=== PATIENT | female | born 1970 | race American Indian/Alaskan Native ===

== ENCOUNTER 2017-03-07 10:15 | Day surgery (SDC) | payer MEDICAID ==
[2017-03-07] MEDS ORDERED: NACL 0.9% 1000 ML 1,000 ML IV SCH (11:00)
[2017-03-07] MEDS ORDERED: XYLOCAINE MPF 2% ONE (11:00)
[2017-03-07] MEDS ORDERED: DIPRIVAN 10 MG/ML IV ONE ×2 (11:20)
[2017-03-07] MEDS ORDERED: WATER FOR IRRIG STERILE IR ONE (11:26)
--- NOTE | 2017-03-07 11:31 | Anesthesia Day of Surgery ---
Anesthesia Day of Surgery - Day of Surgery Patient Examined: Yes Patient H&P Reviewed: Yes Patient is NPO: Yes
--- NOTE | 2017-03-07 11:31 | Anesthesia Consultation ---
Anesthesia Consult and Med Hx Date of service: 03/07/17 - Airway Anesthetic Teeth Evaluation: Good ROM Head & Neck: Adequate Mental/Hyoid Distance: Adequate Mallampati Class: Class II Intubation Access Assessment: Probably Good - Pulmonary Exam CTA: Yes - Cardiac Exam Cardiac Exam: RRR - Pre-Operative Health Status ASA Pre-Surgery Classification: ASA2 Proposed Anesthetic Plan: MAC - Pulmonary Hx Smoking: Yes (black and mild 3-5/day) Hx Sleep Apnea: No - Cardiovascular System Hx Hypertension: Yes (MVP) Hx Angina: Yes (chest pain at rest) - Central Nervous System Hx Neuromuscular Disorder: No Hx Psychiatric Problems: No - Gastrointestinal Hx Gastroesophageal Reflux Disease: No - Endocrine Hx Renal Disease: No Hx Insulin Dependent Diabetes: No - Hematic Hx Anemia: No Hx Sickle Cell Disease: No - Other Systems Hx Alcohol Use: No Hx Substance Use: No Hx Cancer: No Hx Obesity: No
--- NOTE | 2017-03-07 12:00 | Post Anesthesia Evaluation ---
- Post Anesthesia Evaluation Patient Participated: Yes Airway Patent: Yes Stable Respiratory Function: Yes Temp > 96.8F: Yes Pain Manageable: Yes Adequeate Hydration: Yes Anesthesia Complications: No Block Receding Appropriately: Not Applicable
--- NOTE | 2017-03-07 12:07 | Short Stay Summary ---
Short Stay Documentation Date of service: 03/07/17 - History H&P: obtained from office - Allergies and Medications Current Medications: Allergies No Known Allergies Allergy (Verified 03/07/17 10:28) Home Medications Medication Instructions Recorded Confirmed Last Taken Type Carvedilol 1 tab PO BID 03/07/17 03/07/17 03/07/17 History [place] 36,000 Units Capsule 1 tab PO DAILY 03/07/17 03/07/17 03/06/17 History Cyclobenzaprine 1 tab PO DAILY 03/07/17 03/07/17 03/06/17 History Gabapentin 300 mg PO DAILY 03/07/17 03/07/17 03/06/17 History Ibuprofen 2 tab PO PRN PRN 03/07/17 03/07/17 Unknown History Lisinopril/Hydrochlorothiazide 1 tab PO DAILY 03/07/17 03/07/17 03/07/17 History Ondansetron 1 tab PO DAILY 03/07/17 03/07/17 03/06/17 History Pantoprazole 1 tab PO DAILY 03/07/17 03/07/17 03/06/17 History Prochlorperazine 25 mg PO BID 03/07/17 03/07/17 03/06/17 History Ranitidine HCl 150 mg PO DAILY 03/07/17 03/07/17 03/06/17 History Simvastatin 40 mg PO HS 03/07/17 03/07/17 03/06/17 History amLODIPine 1 tab PO DAILY 03/07/17 03/07/17 03/07/17 History hydrALAZINE 1 tab PO DAILY 03/07/17 03/07/17 03/07/17 History Active Medications Sodium Chloride (Nacl 0.9% 1000 Ml) 1,000 mls @ 50 mls/hr IV DIRECT HUONG Last Admin: 03/07/17 10:59 Dose: 50 mls/hr - Brief post op/procedure progress note Date of procedure: 03/07/17 Findings: see dictation Estimated blood loss: none Pathology: none Condition: stable - Disposition Condition at discharge: Good - Discharge Diagnoses (1) Constipation Status: Acute Qualifiers: Constipation type: C Short Stay Discharge Plan Activity: other (no driving for 24 hours) Weight Bearing Status: Full Weight Bearing Diet: regular Follow up with: LAURA KEATING MD [Primary Care Provider] - 7 Days
--- NOTE | 2017-03-07 12:08 | Operative Report ---
Operative Report Operative Report: Date of procedure: 03/07/2017 Preprocedure diagnosis: Severe constipation. Post procedure diagnosis: Normal study. Procedure: Colonoscopy to the cecum Endoscopist: Dr. Guevara Anesthesia: Monitored anesthesia care per anesthesia department Estimated blood loss: 0 Medications: Monitored anesthesia care. See separate report by anesthesia for details. After careful discussion of the nature and purpose of the procedure as well as details of the technique risks benefits and alternatives the patient gave consent. Please see recent history and physical from the office. The patient was placed in the left lateral decubitus position and medicated per anesthesia. A rectal exam was performed sphincter tone was normal there were no masses palpable. The groSolarn 570 scope was passed transanally and advanced under continuous direct vision without difficulty to the cecum. The colon was well prepared. The cecum was normal. The ascending colon was normal and on forward and retroflexed views. The transverse colon, descending colon, and sigmoid colon were normal. The rectum was normal on forward and retroflexed views. The procedure was well-tolerated overall and the patient was observed in recovery. Conclusions: Normal colonoscopy to the cecum. Plan: Repeat colonoscopy in 10 years. Continued outpatient management of constipation. Signed electronically: Christiano Guevara M.D.
[2017-03-07 12:58] VITALS: BP 117/89
== END 2017-03-07 10:16 | disposition home or self-care (01) ==
LOC: GIO 10:15
PROVIDERS: ATTEND Internal Medicine Gastroenterology
DX: K59.00 Constipation, unspecified (principal); I10 Essential (primary) hypertension; F41.8 Other specified anxiety disorders; K21.9 Gastro-esophageal reflux disease without esophagitis; E78.5 Hyperlipidemia, unspecified; G43.909 Migraine, unspecified, not intractable, without status migrainosus; F17.290 Nicotine dependence, other tobacco product, uncomplicated; Z87.19 Personal history of other diseases of the digestive system; Z79.899 Other long term (current) drug therapy
CPT/HCPCS: 45378; J2704; J7030

== ENCOUNTER 2017-10-23 18:05 | Emergency (ER) | payer MEDICAID ==
[2017-10-23 18:16] VITALS: BP 157/93
== END 2017-10-23 19:30 | disposition left against medical advice (07) ==
LOC: ED 18:05
DX: R07.89 Other chest pain (principal); Z53.21 Procedure and treatment not carried out due to patient leaving prior to being seen by health care provider
CPT/HCPCS: 93005; 93010

== ENCOUNTER 2017-11-24 22:38 | Emergency (ER) | payer MEDICAID ==
[2017-11-25 00:22] LABS: Basophils # (Auto) 0.1 K/mm3 (0.0-0.1); Basophils % (Auto) 0.6 % (0.0-1.8); Eosinophils # (Auto) 0.2 K/mm3 (0.0-0.4); Eosinophils % (Auto) 1.7 % (0.0-4.3); Hematocrit 34.5 % (30.3-42.9); Hemoglobin 11.5 gm/dl (10.1-14.3); Lymphocytes # (Auto) 2.9 K/mm3 (1.2-5.4); Lymphocytes % (Auto) 30.1 % (13.4-35.0); Mean Corpuscular HGB Conc 33 % (30-34); Mean Corpuscular Hemoglobin 30 pg (28-32); Mean Corpuscular Volume 90 fl (79-97); Monocytes # (Auto) 1.1 K/mm3 (0.0-0.8); Monocytes % (Auto) 10.9 % (0.0-7.3); Platelet Count 232 K/mm3 (140-440); Red Blood Count 3.82 M/mm3 (3.65-5.03); Red Cell Distribution Width 13.7 % (13.2-15.2)
[2017-11-25 00:40] LABS: Alanine Aminotransferase 15 units/L (7-56); Albumin 4.6 g/dL (3.9-5); BUN/Creatinine Ratio 18; Blood Urea Nitrogen 11 mg/dL (7-17); Hemolysis Index 5
[2017-11-25 00:40] LABS: Amorphous Crystals,Urine 2+; Bilirubin,Urine NEG (Negative); Blood,Urine NEG (Negative); Color,Urine Yellow (Yellow); Hyaline Casts,Urine 7 /LPF; Mucus,Urine FEW /HPF; Protein,Urine <15 mg/dL mg/dL (Negative); Urobilinogen,Urine < 2.0 mg/dL (<2.0)
[2017-11-25 00:54] VITALS: BP 130/86
[2017-11-25] MEDS ORDERED: NORCO 5/325 PO ONE (01:31)
--- NOTE | 2017-11-25 01:37 | Emergency Department Report ---
HPI - General Chief Complaint: Extremity Injury, Lower Time Seen by Provider: 11/25/17 01:18 - HPI HPI: Room 6 The patient is a 47-year-old female presenting with a chief complaint of bilateral foot swelling. The patient states for the past 2 weeks she's had swelling of both feet and they have been painful. Patient denies any preceding trauma or previous episodes of same. Patient denies any recent flights or long car trips. The patient gives her pain score of 10/10 Location: Bilateral feet Duration: 2 weeks Quality:, Swelling, pain Severity: 10/10 Modifying factors: [see above] Context: [see above] Mode of transportation: [not driving] ED Past Medical Hx - Past Medical History Hx Hypertension: Yes (MVP) - Surgical History Additional Surgical History: Partial Hysterectomy - Family History Family history: no significant - Social History Smoking Status: Former Smoker (none 6 months) Substance Use Type: None (denies illicit drug use), Alcohol (occasional) - Medications Home Medications: Home Medications Medication Instructions Recorded Confirmed Last Taken Type Carvedilol 1 tab PO BID 03/07/17 03/07/17 03/07/17 History [place] 36,000 Units Capsule 1 tab PO DAILY 03/07/17 03/07/17 03/06/17 History Cyclobenzaprine 1 tab PO DAILY 03/07/17 03/07/17 03/06/17 History Gabapentin 300 mg PO DAILY 03/07/17 03/07/17 03/06/17 History Ibuprofen 2 tab PO PRN PRN 03/07/17 03/07/17 Unknown History Lisinopril/Hydrochlorothiazide 1 tab PO DAILY 03/07/17 03/07/17 03/07/17 History Ondansetron 1 tab PO DAILY 03/07/17 03/07/17 03/06/17 History Pantoprazole 1 tab PO DAILY 03/07/17 03/07/17 03/06/17 History Prochlorperazine 25 mg PO BID 03/07/17 03/07/17 03/06/17 History Ranitidine HCl 150 mg PO DAILY 03/07/17 03/07/17 03/06/17 History Simvastatin 40 mg PO HS 03/07/17 03/07/17 03/06/17 History amLODIPine 1 tab PO DAILY 03/07/17 03/07/17 03/07/17 History hydrALAZINE 1 tab PO DAILY 03/07/17 03/07/17 03/07/17 History Furosemide [Lasix] 20 mg PO QDAY #5 tablet 11/25/17 Unknown Rx HYDROcodone/APAP 5-325 [[place] 1 - 2 each PO Q6HR PRN #10 tablet 11/25/17 Unknown Rx 5/325] Ibuprofen [Motrin 800 MG tab] 800 mg PO Q8HR PRN #20 tablet 11/25/17 Unknown Rx ED Review of Systems ROS: Stated complaint: BILATERAL LEG SWELLING,PAIN Other details as noted in HPI Physical Exam - Physical Exam Vital Signs: Vital Signs 11/24/17 11/25/17 23:39 00:51 Temperature 98.4 F 98.7 F Pulse Rate 106 H 106 H Respiratory 18 18 Rate Blood Pressure 130/71 Blood Pressure 130/86 [Left] O2 Sat by Pulse 97 97 Oximetry Physical Exam: GENERAL: The patient is well-developed well-nourished female lying on stretcher not appearing to be in acute distress. [] HEENT: Normocephalic. Atraumatic. Extraocular motions are intact. Patient has moist mucous membranes. NECK: Supple. Trachea midline CHEST/LUNGS: Clear to auscultation. There is no respiratory distress noted. HEART/CARDIOVASCULAR: Regular. There is no tachycardia. There is no gallop rub or murmur. 2+ DPs bilaterally ABDOMEN: Abdomen is soft, nontender. Patient has normal bowel sounds. There is no abdominal distention. SKIN: There is no rash. There is trace bilateral pedal edema. There is no diaphoresis. NEURO: The patient is awake, alert, and oriented. The patient is cooperative. The patient has normal speech MUSCULOSKELETAL: There is no evidence of acute injury. ED Course Vital Signs 11/24/17 11/25/17 23:39 00:51 Temperature 98.4 F 98.7 F Pulse Rate 106 H 106 H Respiratory 18 18 Rate Blood Pressure 130/71 Blood Pressure 130/86 [Left] O2 Sat by Pulse 97 97 Oximetry ED Medical Decision Making - Lab Data Result diagrams: 11/24/17 23:52 11/24/17 23:52 Laboratory Tests 11/24/17 11/24/17 11/24/17 23:50 23:52 23:52 WBC 9.7 RBC 3.82 Hgb 11.5 Hct 34.5 MCV 90 MCH 30 MCHC 33 RDW 13.7 Plt Count 232 Lymph % (Auto) 30.1 [place] % (Auto) 10.9 H Eos % (Auto) 1.7 Baso % (Auto) 0.6 Lymph # 2.9 [place] # 1.1 H Eos # 0.2 Baso # 0.1 Seg Neutrophils % 56.7 Seg Neutrophils # 5.5 Sodium 139 Potassium 4.0 Chloride 101.8 Carbon Dioxide 24 Anion Gap 17 BUN 11 Creatinine 0.6 L Estimated GFR > 60 BUN/Creatinine Ratio 18 Glucose 101 H POC Glucose 96 Calcium 9.0 Total Bilirubin 0.40 AST 13 ALT 15 Alkaline Phosphatase 37 NT-Pro-B Natriuret Pep Total Protein 8.1 Albumin 4.6 Albumin/Globulin Ratio 1.3 Urine Color Urine Turbidity Urine pH Ur Specific [place] Urine Protein Urine Glucose (UA) Urine Ketones Urine Blood Urine Nitrite Urine Bilirubin Urine Urobilinogen Ur Leukocyte Esterase Urine WBC (Auto) Urine RBC (Auto) U Epithel Cells (Auto) Amorphous Crystals Hyaline Casts Urine Mucus 11/24/17 11/25/17 Unknown 01:30 WBC RBC Hgb Hct MCV MCH MCHC RDW Plt Count Lymph % (Auto) [place] % (Auto) Eos % (Auto) Baso % (Auto) Lymph # [place] # Eos # Baso # Seg Neutrophils % Seg Neutrophils # Sodium Potassium Chloride Carbon Dioxide Anion Gap BUN Creatinine Estimated GFR BUN/Creatinine Ratio Glucose POC Glucose Calcium Total Bilirubin AST ALT Alkaline Phosphatase NT-Pro-B Natriuret Pep 10.79 Total Protein Albumin Albumin/Globulin Ratio Urine Color Yellow Urine Turbidity Clear Urine pH 7.0 Ur Specific [place] 1.012 Urine Protein <15 mg/dl Urine Glucose (UA) Neg Urine Ketones Neg Urine Blood Neg Urine Nitrite Neg Urine Bilirubin Neg Urine Urobilinogen < 2.0 Ur Leukocyte Esterase Neg Urine WBC (Auto) 1.0 Urine RBC (Auto) 1.0 U Epithel Cells (Auto) 61.0 H Amorphous Crystals 2+ Hyaline Casts 7 Urine Mucus Few Laboratory Tests 11/24/17 11/24/17 11/24/17 23:50 23:52 23:52 WBC 9.7 RBC 3.82 Hgb 11.5 Hct 34.5 MCV 90 MCH 30 MCHC 33 RDW 13.7 Plt Count 232 Lymph % (Auto) 30.1 [place] % (Auto) 10.9 H Eos % (Auto) 1.7 Baso % (Auto) 0.6 Lymph # 2.9 [place] # 1.1 H Eos # 0.2 Baso # 0.1 Seg Neutrophils % 56.7 Seg Neutrophils # 5.5 Sodium 139 Potassium 4.0 Chloride 101.8 Carbon Dioxide 24 Anion Gap 17 BUN 11 Creatinine 0.6 L Estimated GFR > 60 BUN/Creatinine Ratio 18 Glucose 101 H POC Glucose 96 Calcium 9.0 Total Bilirubin 0.40 AST 13 ALT 15 Alkaline Phosphatase 37 NT-Pro-B Natriuret Pep Total Protein 8.1 Albumin 4.6 Albumin/Globulin Ratio 1.3 Urine Color Urine Turbidity Urine pH Ur Specific [place] Urine Protein Urine Glucose (UA) Urine Ketones Urine Blood Urine Nitrite Urine Bilirubin Urine Urobilinogen Ur Leukocyte Esterase Urine WBC (Auto) Urine RBC (Auto) U Epithel Cells (Auto) Amorphous Crystals Hyaline Casts Urine Mucus 11/24/17 11/25/17 Unknown 01:30 WBC RBC Hgb Hct MCV MCH MCHC RDW Plt Count Lymph % (Auto) [place] % (Auto) Eos % (Auto) Baso % (Auto) Lymph # [place] # Eos # Baso # Seg Neutrophils % Seg Neutrophils # Sodium Potassium Chloride Carbon Dioxide Anion Gap BUN Creatinine Estimated GFR BUN/Creatinine Ratio Glucose POC Glucose Calcium Total Bilirubin AST ALT Alkaline Phosphatase NT-Pro-B Natriuret Pep 10.79 Total Protein Albumin Albumin/Globulin Ratio Urine Color Yellow Urine Turbidity Clear Urine pH 7.0 Ur Specific [place] 1.012 Urine Protein <15 mg/dl Urine Glucose (UA) Neg Urine Ketones Neg Urine Blood Neg Urine Nitrite Neg Urine Bilirubin Neg Urine Urobilinogen < 2.0 Ur Leukocyte Esterase Neg Urine WBC (Auto) 1.0 Urine RBC (Auto) 1.0 U Epithel Cells (Auto) 61.0 H Amorphous Crystals 2+ Hyaline Casts 7 Urine Mucus Few - Differential Diagnosis hypoalbuminemia, renal insufficiency, CHF, peripheral edema Critical care attestation.: If time is entered above; I have spent that time in minutes in the direct care of this critically ill patient, excluding procedure time. ED Disposition Clinical Impression: Peripheral edema, Bilateral foot pain Disposition: TO HOME OR SELFCARE Is pt being admited?: No Does the pt Need Aspirin: No Condition: Stable Instructions: Leg Edema (ED) Additional Instructions: Return to the emergency department immediately should you develop worsening symptoms, fever, inability to tolerate food or liquid or any other concerns. Prescriptions: Furosemide [Lasix] 20 mg PO QDAY #5 tablet HYDROcodone/APAP 5-325 [[place] 5/325] 1 - 2 each PO Q6HR PRN #10 tablet PRN Reason: Pain Ibuprofen [Motrin 800 MG tab] 800 mg PO Q8HR PRN #20 tablet PRN Reason: Pain Referrals: LAURA KEATING MD [Staff Physician] - 2-3 Days Time of Disposition: 02:17
== END 2017-11-25 02:27 | disposition home or self-care (01) ==
LOC: ED 22:38
DX: M79.672 Pain in left foot (principal); M79.671 Pain in right foot; I10 Essential (primary) hypertension; Z87.891 Personal history of nicotine dependence
CPT/HCPCS: 36415; 80053; 81001; 82962; 83880; 85025; 99283

== ENCOUNTER 2018-05-03 16:38 | Emergency (ER) | payer MEDICAID ==
[2018-05-03 16:55] VITALS: BP 143/99
[2018-05-03 17:26] LABS: Basophils # (Auto) 0.1 K/mm3 (0.0-0.1); Basophils % (Auto) 0.9 % (0.0-1.8); Eosinophils # (Auto) 0.2 K/mm3 (0.0-0.4); Eosinophils % (Auto) 1.3 % (0.0-4.3); Hematocrit 39.8 % (30.3-42.9); Hemoglobin 13.2 gm/dl (10.1-14.3); Lymphocytes # (Auto) 3.3 K/mm3 (1.2-5.4); Lymphocytes % (Auto) 26.6 % (13.4-35.0); Mean Corpuscular HGB Conc 33 % (30-34); Mean Corpuscular Hemoglobin 30 pg (28-32); Mean Corpuscular Volume 89 fl (79-97); Monocytes # (Auto) 0.9 K/mm3 (0.0-0.8); Monocytes % (Auto) 7.2 % (0.0-7.3); Platelet Count 207 K/mm3 (140-440); Red Blood Count 4.45 M/mm3 (3.65-5.03); Red Cell Distribution Width 13.2 % (13.2-15.2)
[2018-05-03 17:54] LABS: BUN/Creatinine Ratio 20; Blood Urea Nitrogen 14 mg/dL (7-17); Calcium 9.9 mg/dL (8.4-10.2); Hemolysis Index 9
[2018-05-03 18:58] LABS: Bilirubin,Urine NEG (Negative); Blood,Urine NEG (Negative); Color,Urine Yellow (Yellow); Protein,Urine <15 mg/dL mg/dL (Negative)
== END 2018-05-03 19:22 | disposition left against medical advice (07) ==
LOC: ED 16:38
DX: R73.09 Other abnormal glucose (principal); Z53.21 Procedure and treatment not carried out due to patient leaving prior to being seen by health care provider
CPT/HCPCS: 36415; 80048; 81001; 82805; 82962; 85025

== ENCOUNTER 2018-10-09 17:25 | Emergency (ER) | payer MEDICAID, OTHER ==
--- NOTE | 2018-10-09 17:32 | Emergency Department Report ---
Addendum entered and electronically signed by SARAH MCGEE NP 10/09/18 17:35: Blank Doc - Documentation Documentation: Heart rate elevated and fever with unknown source. Code sepsis. Original Note: Blank Doc - Documentation Documentation: This is a 48-year-old female that presents with hyperglyemia. Stated was at high 300s at home. Stated takes insulin. Patient stated has back pain, increased thirst, bilateral eye pain with some blurry vision, increased urination. This initial assessment diagnostic orders/clinical plan/treatment(s) is/are subject to change based on patient's health status, clinical progression and re- assessment by fellow clinical providers in the ED. Further treatment and workup at subsequent clinical providers discretion. Patient/guardians urged not to elope from ED s their condition may be serious if not clinically assessed and managed. Initial orders include: 1-Patient sent to main ED for further evaluation and treatment. 2- Labs 3- UA
[2018-10-09] MEDS ORDERED: NACL 0.9% 1000 ML IV ONE (17:36)
[2018-10-09 18:22] LABS: Alanine Aminotransferase 18 units/L (7-56); Albumin 4.2 g/dL (3.9-5); BUN/Creatinine Ratio 16; Blood Urea Nitrogen 13 mg/dL (7-17); Calcium 9.4 mg/dL (8.4-10.2); Hemolysis Index 10
--- NOTE | 2018-10-09 18:30 | Emergency Department Report ---
ED General Adult HPI - General Chief complaint: Hyperglycemia Stated complaint: SUGAR/BP/(L) SIDE PAIN Time Seen by Provider: 10/09/18 17:30 Source: patient Mode of arrival: Ambulatory Limitations: No Limitations - History of Present Illness Initial comments: Patient is 48-year-old female with a recent diagnosis of diabetes. Patient is started on metformin twice a day and insulin regular 3 times a day and Lantus at night. Patient presented to the ER stating that she has been having blurry vision for the last 2 weeks, increased thirst and increased urination. Patient also stated that she's been coughing a lot. Patient denied any nausea or vomit ing. No chest pain or shortness of breath or abdominal pain. Patient stated that she only taking metformin now. She stated that last time she took insulin was 3 months ago because she just doesn't want to take the insulin. Patient denied any headache, neck pain, weakness, numbness or angling sensation. Severity scale (0 -10): 10 - Related Data Home Medications Medication Instructions Recorded Confirmed Last Taken Carvedilol 1 tab PO BID 03/07/17 03/07/17 03/07/17 [place] 36,000 Units Capsule 1 tab PO DAILY 03/07/17 03/07/17 03/06/17 Cyclobenzaprine 1 tab PO DAILY 03/07/17 03/07/17 03/06/17 Gabapentin 300 mg PO DAILY 03/07/17 03/07/17 03/06/17 Ibuprofen 2 tab PO PRN PRN 03/07/17 03/07/17 Unknown Lisinopril/Hydrochlorothiazide 1 tab PO DAILY 03/07/17 03/07/17 03/07/17 Ondansetron 1 tab PO DAILY 03/07/17 03/07/17 03/06/17 Pantoprazole 1 tab PO DAILY 03/07/17 03/07/17 03/06/17 Prochlorperazine 25 mg PO BID 03/07/17 03/07/17 03/06/17 Ranitidine HCl 150 mg PO DAILY 03/07/17 03/07/17 03/06/17 Simvastatin 40 mg PO HS 03/07/17 03/07/17 03/06/17 amLODIPine 1 tab PO DAILY 03/07/17 03/07/17 03/07/17 hydrALAZINE 1 tab PO DAILY 03/07/17 03/07/17 03/07/17 Previous Rx's Medication Instructions Recorded Last Taken Type Furosemide [Lasix] 20 mg PO QDAY #5 tablet 11/25/17 Unknown Rx HYDROcodone/APAP 5-325 [[place] 1 - 2 each PO Q6HR PRN #10 tablet 11/25/17 Unknown Rx 5/325] Ibuprofen [Motrin 800 MG tab] 800 mg PO Q8HR PRN #20 tablet 11/25/17 Unknown Rx Allergies Allergy/AdvReac Type Severity Reaction Status Date / Time No Known Allergies Allergy Verified 05/03/18 16:55 ED Review of Systems ROS: Stated complaint: SUGAR/BP/(L) SIDE PAIN Other details as noted in HPI Comment: All other systems reviewed and negative Constitutional: denies: chills, fever Respiratory: cough. denies: orthopnea, shortness of breath, SOB with exertion, SOB at rest, stridor, wheezing Cardiovascular: denies: chest pain, palpitations, dyspnea on exertion Gastrointestinal: denies: abdominal pain, nausea, vomiting Musculoskeletal: denies: back pain Neurological: denies: headache, weakness ED Past Medical Hx - Past Medical History Hx Hypertension: Yes (MVP) Hx Dementia: Yes (type II) Additional medical history: high cholesterol - Surgical History Additional Surgical History: Partial Hysterectomy - Social History Smoking Status: Current Every Day Smoker Substance Use Type: None - Medications Home Medications: Home Medications Medication Instructions Recorded Confirmed Last Taken Type Carvedilol 1 tab PO BID 03/07/17 03/07/17 03/07/17 History [place] 36,000 Units Capsule 1 tab PO DAILY 03/07/17 03/07/17 03/06/17 History Cyclobenzaprine 1 tab PO DAILY 03/07/17 03/07/17 03/06/17 History Gabapentin 300 mg PO DAILY 03/07/17 03/07/17 03/06/17 History Ibuprofen 2 tab PO PRN PRN 03/07/17 03/07/17 Unknown History Lisinopril/Hydrochlorothiazide 1 tab PO DAILY 03/07/17 03/07/17 03/07/17 History Ondansetron 1 tab PO DAILY 03/07/17 03/07/17 03/06/17 History Pantoprazole 1 tab PO DAILY 03/07/17 03/07/17 03/06/17 History Prochlorperazine 25 mg PO BID 03/07/17 03/07/17 03/06/17 History Ranitidine HCl 150 mg PO DAILY 03/07/17 03/07/17 03/06/17 History Simvastatin 40 mg PO HS 03/07/17 03/07/17 03/06/17 History amLODIPine 1 tab PO DAILY 03/07/17 03/07/17 03/07/17 History hydrALAZINE 1 tab PO DAILY 03/07/17 03/07/17 03/07/17 History Furosemide [Lasix] 20 mg PO QDAY #5 tablet 11/25/17 Unknown Rx HYDROcodone/APAP 5-325 [[place] 1 - 2 each PO Q6HR PRN #10 tablet 11/25/17 Unknown Rx 5/325] Ibuprofen [Motrin 800 MG tab] 800 mg PO Q8HR PRN #20 tablet 11/25/17 Unknown Rx ED Physical Exam - General Limitations: No Limitations General appearance: alert, in no apparent distress - Head Head exam: Present: atraumatic, normocephalic, normal inspection - Eye Eye exam: Present: normal appearance, PERRL - ENT ENT exam: Present: normal exam, normal orophraynx, mucous membranes moist - Neck Neck exam: Present: normal inspection, full ROM. Absent: tenderness, mening ismus, lymphadenopathy, thyromegaly - Respiratory Respiratory exam: Present: normal lung sounds bilaterally. Absent: respiratory distress, wheezes, rales, rhonchi, stridor, chest wall tenderness, accessory muscle use, decreased breath sounds, prolonged expiratory - Cardiovascular Cardiovascular Exam: Present: regular rate, normal rhythm, normal heart sounds - GI/Abdominal GI/Abdominal exam: Present: soft, normal bowel sounds. Absent: distended, tenderness, guarding, rebound, rigid, organomegaly, mass, bruit, pulsatile mass, hernia - Extremities Exam Extremities exam: Present: normal inspection, full ROM, normal capillary refill - Back Exam Back exam: Present: normal inspection, full ROM. Absent: tenderness, CVA tenderness (R), CVA tenderness (L), muscle spasm, paraspinal tenderness, vertebral tenderness - Neurological Exam Neurological exam: Present: alert, oriented X3, CN II-XII intact, normal gait, reflexes normal - Skin Skin exam: Present: warm, intact ED Course Vital Signs 10/09/18 10/09/18 10/09/18 17:38 18:38 18:39 Temperature 99.8 F H Pulse Rate 113 H 104 H Respiratory 20 22 Rate Blood Pressure 155/100 O2 Sat by Pulse 98 97 Oximetry 10/09/18 10/09/18 10/09/18 18:45 19:00 19:15 Temperature Pulse Rate 90 87 90 Respiratory 21 20 Rate Blood Pressure 150/91 O2 Sat by Pulse 97 Oximetry 10/09/18 10/09/18 19:30 19:36 Temperature Pulse Rate 90 Respiratory 24 20 Rate Blood Pressure 148/92 O2 Sat by Pulse 97 Oximetry ED Medical Decision Making - Lab Data Result diagrams: 10/09/18 19:19 10/09/18 17:41 - Medical Decision Making Patient is 48-year-old female with a recent diagnosis of diabetes. Patient is started on metformin twice a day and insulin regular 3 times a day and Lantus at night. Patient presented to the ER stating that she has been having blurry v ision for the last 2 weeks, increased thirst and increased urination. Patient also stated that she's been coughing a lot. Patient denied any nausea or vomiting. No chest pain or shortness of breath or abdominal pain. Patient stated that she only taking metformin now. She stated that last time she took insulin was 3 months ago because she just doesn't want to take the insulin. Patient denied any headache, neck pain, weakness, numbness or tingling sensation. Patient stated that she is feeling much better. Patient received Zosyn, normocephalic. No evidence of DKA patient has an iron gap of 19. Chest x-ray is unremarkable for acute findings. Urine is positive for UTI. I strongly advi sed the patient to be compliant with her insulin and to follow-up with her primary care physician in the next 2-3 days. Critical Care Time: Yes Critical care time in (mins) excluding proc time.: 30 Critical care attestation.: If time is entered above; I have spent that time in minutes in the direct care of this critically ill patient, excluding procedure time. ED Disposition Clinical Impression: Hyperglycemia, Sepsis, UTI (urinary tract infection) Disposition: - TO HOME OR SELFCARE Is pt being admited?: No Condition: Stable Instructions: Diabetic Hyperglycemia (ED), Urinary Tract Infection in Women (ED) Referrals: SONY LENTZ MD [Primary Care Provider] - 3-5 Days
[2018-10-09] MEDS ORDERED: TYLENOL PO ONE (19:28)
[2018-10-09 19:32] LABS: Basophils # (Auto) 0.1 K/mm3 (0.0-0.1); Basophils % (Auto) 0.8 % (0.0-1.8); Eosinophils # (Auto) 0.1 K/mm3 (0.0-0.4); Eosinophils % (Auto) 1.1 % (0.0-4.3); Hematocrit 41.2 % (30.3-42.9); Hemoglobin 13.8 gm/dl (10.1-14.3); Lymphocytes # (Auto) 3.5 K/mm3 (1.2-5.4); Lymphocytes % (Auto) 25.5 % (13.4-35.0); Mean Corpuscular HGB Conc 34 % (30-34); Mean Corpuscular Volume 93 fl (79-97); Monocytes # (Auto) 0.7 K/mm3 (0.0-0.8); Monocytes % (Auto) 5.4 % (0.0-7.3); Platelet Count 209 K/mm3 (140-440); Red Blood Count 4.43 M/mm3 (3.65-5.03)
[2018-10-09 19:39] LABS: Bacteria,Urine 4+ /HPF (Negative); Bilirubin,Urine NEG (Negative); Blood,Urine NEG (Negative); Calcium Oxalate Crystals,Urine 2+; Color,Urine Yellow (Yellow); Hyaline Casts,Urine 2 /LPF; Mucus,Urine 2+ /HPF
[2018-10-09] MEDS ORDERED: ZOSYN/NS 3.375GM/50ML 3.375 GM/50 ML BAG IV ONE (20:00)
[2018-10-09 21:18] VITALS: BP 131/84
--- NOTE | 2018-10-14 09:39 | XRay Report ---
AP CHEST: HISTORY: Sepsis AP view of the chest demonstrates a normal mediastinal and cardiac contour with clear lungs and normal bony and soft tissue structures. IMPRESSION: Unremarkable AP chest.
== END 2018-10-09 21:21 | disposition home or self-care (01) ==
LOC: ED 17:25
DX: A41.9 Sepsis, unspecified organism (principal); N39.0 Urinary tract infection, site not specified; E11.65 Type 2 diabetes mellitus with hyperglycemia; F03.90 Unspecified dementia, unspecified severity, without behavioral disturbance, psychotic disturbance, mood disturbance, and anxiety; F17.200 Nicotine dependence, unspecified, uncomplicated; Z90.711 Acquired absence of uterus with remaining cervical stump
CPT/HCPCS: 36415; 71045; 80053; 81001; 82140; 82962; 85025; 87040; 93005; 93010; 96361; 96365; 99291; J2543; J7030

== ENCOUNTER 2018-11-10 09:28 | Emergency (ER) | payer OTHER ==
[2018-11-10 09:35] VITALS: BP 137/84
--- NOTE | 2018-11-10 10:20 | XRay Report ---
PROCEDURE: XR FOOT 3+V LT TECHNIQUE: 3 views left foot HISTORY: left foot/great toe injury COMPARISONS: None FINDINGS: Mild degenerative change first metatarsophalangeal joint. No calcaneal spur. No acute fracture or mal alignment. No radiopaque foreign body. No soft tissue gas IMPRESSION: No acute fracture or malalignment. Mild degenerative change first metatarsophalangeal joint.. This document is electronically signed by Oswaldo Alvarenga MD., November 10 2018 10:17:15 AM ET
--- NOTE | 2018-11-10 10:57 | Emergency Department Report ---
ED Lower Extremity HPI - General Chief Complaint: Extremity Injury, Lower Stated Complaint: LT FOOT BIG TOE PAIN Time Seen by Provider: 11/10/18 10:52 Source: patient Mode of arrival: Ambulatory Limitations: No Limitations - History of Present Illness Initial Comments: Patient is a 48-year-old female with no significant past medical history except for diabetes, nontoxic, patient presented to the emergency room complaining of left foot pain for the last 2 weeks. Patient stated that a piece of furniture dropped on her left foot. Patient denied any other injuries. Patient also stated that she is out of her insulin and she is requesting refill. MD Complaint: foot injury - Related Data Home Medications Medication Instructions Recorded Confirmed Last Taken Carvedilol 1 tab PO BID 03/07/17 03/07/17 03/07/17 Davide [place] 36,000 Units Capsule 1 tab PO DAILY 03/07/17 03/07/17 03/06/17 Cyclobenzaprine 1 tab PO DAILY 03/07/17 03/07/17 03/06/17 Gabapentin 300 mg PO DAILY 03/07/17 03/07/17 03/06/17 Ibuprofen 2 tab PO PRN PRN 03/07/17 03/07/17 Unknown Lisinopril/Hydrochlorothiazide 1 tab PO DAILY 03/07/17 03/07/17 03/07/17 Ondansetron 1 tab PO DAILY 03/07/17 03/07/17 03/06/17 Pantoprazole 1 tab PO DAILY 03/07/17 03/07/17 03/06/17 Prochlorperazine 25 mg PO BID 03/07/17 03/07/17 03/06/17 Ranitidine HCl 150 mg PO DAILY 03/07/17 03/07/17 03/06/17 Simvastatin 40 mg PO HS 03/07/17 03/07/17 03/06/17 amLODIPine 1 tab PO DAILY 03/07/17 03/07/17 03/07/17 hydrALAZINE 1 tab PO DAILY 03/07/17 03/07/17 03/07/17 Previous Rx's Medication Instructions Recorded Last Taken Type Furosemide [Lasix] 20 mg PO QDAY #5 tablet 11/25/17 Unknown Rx HYDROcodone/APAP 5-325 [Elliott 1 - 2 each PO Q6HR PRN #10 tablet 11/25/17 Unknown Rx 5/325] Ibuprofen [Motrin 800 MG tab] 800 mg PO Q8HR PRN #20 tablet 11/25/17 Unknown Rx Ciprofloxacin HCl [Ciprofloxacin 500 mg PO Q12H #14 tab 10/09/18 Unknown Rx TAB] Naproxen [Naprosyn] 500 mg PO BID #14 tablet 11/10/18 Unknown Rx Allergies Allergy/AdvReac Type Severity Reaction Status Date / Time No Known Allergies Allergy Verified 05/03/18 16:55 ED Review of Systems ROS: Stated complaint: LT FOOT BIG TOE PAIN Other details as noted in HPI Comment: All other systems reviewed and negative Constitutional: denies: chills, fever Respiratory: denies: cough, orthopnea, shortness of breath, SOB with exertion Cardiovascular: denies: chest pain, palpitations Gastrointestinal: denies: abdominal pain ED Past Medical Hx - Past Medical History Previous Medical History?: Yes Hx Hypertension: Yes (MVP) Hx Diabetes: Yes Hx Dementia: Yes (type II) Additional medical history: high cholesterol - Surgical History Past Surgical History?: Yes Additional Surgical History: Partial Hysterectomy - Social History Smoking Status: Current Every Day Smoker Substance Use Type: Alcohol, Prescribed - Medications Home Medications: Home Medications Medication Instructions Recorded Confirmed Last Taken Type Carvedilol 1 tab PO BID 03/07/17 03/07/17 03/07/17 History Davide [place] 36,000 Units Capsule 1 tab PO DAILY 03/07/17 03/07/17 03/06/17 History Cyclobenzaprine 1 tab PO DAILY 03/07/17 03/07/17 03/06/17 History Gabapentin 300 mg PO DAILY 03/07/17 03/07/17 03/06/17 History Ibuprofen 2 tab PO PRN PRN 03/07/17 03/07/17 Unknown History Lisinopril/Hydrochlorothiazide 1 tab PO DAILY 03/07/17 03/07/17 03/07/17 History Ondansetron 1 tab PO DAILY 03/07/17 03/07/17 03/06/17 History Pantoprazole 1 tab PO DAILY 03/07/17 03/07/17 03/06/17 History Prochlorperazine 25 mg PO BID 03/07/17 03/07/17 03/06/17 History Ranitidine HCl 150 mg PO DAILY 03/07/17 03/07/17 03/06/17 History Simvastatin 40 mg PO HS 03/07/17 03/07/17 03/06/17 History amLODIPine 1 tab PO DAILY 03/07/17 03/07/17 03/07/17 History hydrALAZINE 1 tab PO DAILY 03/07/17 03/07/17 03/07/17 History Furosemide [Lasix] 20 mg PO QDAY #5 tablet 11/25/17 Unknown Rx HYDROcodone/APAP 5-325 [Elliott 1 - 2 each PO Q6HR PRN #10 tablet 11/25/17 Unknown Rx 5/325] Ibuprofen [Motrin 800 MG tab] 800 mg PO Q8HR PRN #20 tablet 11/25/17 Unknown Rx Ciprofloxacin HCl [Ciprofloxacin 500 mg PO Q12H #14 tab 10/09/18 Unknown Rx TAB] Naproxen [Naprosyn] 500 mg PO BID #14 tablet 11/10/18 Unknown Rx ED Physical Exam - General Limitations: No Limitations General appearance: alert, in no apparent distress - Head Head exam: Present: atraumatic - Eye Eye exam: Present: normal appearance - ENT ENT exam: Present: normal exam - Neck Neck exam: Present: normal inspection, full ROM. Absent: tenderness, meningismus, lymphadenopathy, thyromegaly - Respiratory Respiratory exam: Present: normal lung sounds bilaterally - Cardiovascular Cardiovascular Exam: Present: regular rate, normal rhythm, normal heart sounds - GI/Abdominal GI/Abdominal exam: Present: soft. Absent: distended, tenderness, guarding - Expanded Lower Extremity Exam Left Foot/Toe exam: Present: full ROM, tenderness. Absent: swelling, abrasion, laceration, ecchymosis, deformity Neuro vascular tendon exam: Present: no vascular compromise ED Course Vital Signs 11/10/18 09:32 Temperature 98.6 F Pulse Rate 98 H Respiratory 18 Rate Blood Pressure 137/84 O2 Sat by Pulse 98 Oximetry ED Lower Extremity MDM - Radiology Data Radiology results: report reviewed Referring Physician: ED DOC Patient Name: KENY DA SILVA Date of : 1970 Sex: Female Report Date: 2018-11-10 Report Status: Finalized Findings [facility] [address] [place] [address] XRay Report Signed Patient: KENY DA SILVA MR#: [id number] : 1970 Acct:[id number] Age/Sex: 48 / F ADM Date: 11/10/18 Loc: ED Attending Dr: Ordering Physician: MARY PETE MD Date of Service: 11/10/18 Procedure(s): XR foot 3+V LT Accession Number(s): [id number] cc: MARY PETE MD Fluoro Time In Minutes: PROCEDURE: XR FOOT 3+V LT TECHNIQUE: 3 views left foot HISTORY: left foot/great toe injury COMPARISONS: None FINDINGS: Mild degenerative change first metatarsophalangeal joint. No calcaneal spur. No acute fracture or malalignment. No radiopaque foreign body. No soft tissue gas IMPRESSION: No acute fracture or malalignment. Mild degenerative change first metatarsophalangeal joint.. This document is electronically signed by Oswaldo Shaw MD., November 10 2018 10:17:15 AM ET Transcribed By: JOSE F Dictated By: OSWALDO SHAW MD Electronically Authenticated By: OSWALDO SHAW MD Signed Date/Time: 11/10/18 1020 DD/ 1004 TD/TT: 11/10/18 1005 Critical care attestation.: If time is entered above; I have spent that time in minutes in the direct care of this critically ill patient, excluding procedure time. ED Disposition Clinical Impression: Contusion of foot, left, Diabetes Disposition: DC-01 TO HOME OR SELFCARE Is pt being admited?: No Condition: Stable Instructions: Foot Contusion (ED), Diabetes Mellitus Type 2 in Adults (ED) Prescriptions: Naproxen [Naprosyn] 500 mg PO BID #14 tablet Referrals: [facility] [Provider Group] - 3-5 Days Forms: Work/School Release Form(ED)
== END 2018-11-10 11:06 | disposition home or self-care (01) ==
LOC: ED 09:28
DX: S90.32XA Contusion of left foot, initial encounter (principal); E11.9 Type 2 diabetes mellitus without complications; I10 Essential (primary) hypertension; E78.00 Pure hypercholesterolemia, unspecified; F17.200 Nicotine dependence, unspecified, uncomplicated; Z90.711 Acquired absence of uterus with remaining cervical stump; W01.190A Fall on same level from slipping, tripping and stumbling with subsequent striking against furniture, initial encounter; Y93.89 Activity, other specified; Y92.89 Other specified places as the place of occurrence of the external cause; Y99.8 Other external cause status
CPT/HCPCS: 99283

== ENCOUNTER 2019-06-07 02:50 | Emergency (ER) | payer SELFPAY ==
[2019-06-07 02:58] VITALS: BP 126/70
[2019-06-07 03:42] LABS: Basophils # (Auto) 0.1 K/mm3 (0.0-0.1); Basophils % (Auto) 0.3 % (0.0-1.8); Eosinophils # (Auto) 0.1 K/mm3 (0.0-0.4); Eosinophils % (Auto) 0.3 % (0.0-4.3); Hematocrit 42.5 % (30.3-42.9); Hemoglobin 14.3 gm/dl (10.1-14.3); Lymphocytes % (Auto) 18.5 % (13.4-35.0); Mean Corpuscular HGB Conc 34 % (30-34); Mean Corpuscular Volume 93 fl (79-97); Monocytes # (Auto) 0.9 K/mm3 (0.0-0.8); Monocytes % (Auto) 5.4 % (0.0-7.3); Platelet Count 206 K/mm3 (140-440); Red Blood Count 4.59 M/mm3 (3.65-5.03); Red Cell Distribution Width 13.8 % (13.2-15.2)
[2019-06-07 04:08] LABS: Alanine Aminotransferase 12 units/L (7-56); Albumin 3.4 g/dL (3.9-5); BUN/Creatinine Ratio 11; Blood Urea Nitrogen 8 mg/dL (7-17); Calcium 8.1 mg/dL (8.4-10.2); Hemolysis Index 9
[2019-06-07 04:26] LABS: Bacteria,Urine 1+ /HPF (Negative); Bilirubin,Urine NEG (Negative); Blood,Urine LG (Negative); Color,Urine Yellow (Yellow); Mucus,Urine FEW /HPF; Protein,Urine <15 mg/dL mg/dL (Negative)
== END 2019-06-07 04:10 | disposition left against medical advice (07) ==
LOC: ED 02:50
DX: R10.30 Lower abdominal pain, unspecified (principal); Z53.21 Procedure and treatment not carried out due to patient leaving prior to being seen by health care provider
CPT/HCPCS: 36415; 80053; 81001; 85025; 87086